=== PATIENT | female | born 1965 | race Caucasian/White ===

== ENCOUNTER → 2020-09-06 | Outpatient (CLI) | payer OTHER ==
[~2020-09-06] MED LIST: BCP TD; CIPRO 500MG TA500 MG PO; GLUCOPHAGE500 MG/TAB PO; MULTIPLE VITAMI1 CAP PO; PREMPRO 0.45 MG1 TAB PO; ULTRAM50 MG PO
== END ==
LOC: MC.RAD 13:28
DX: Z12.31 Encounter for screening mammogram for malignant neoplasm of breast (principal)